=== PATIENT | female | born 1955 | race Two or more races ===

== ENCOUNTER 2018-07-26 15:56 | Inpatient (IN) | payer MEDICAID ==
[~2018-07-26] VITALS: Ht 162.6 cm; Wt 49.0 kg
--- NOTE | 2018-07-26 16:01 | NUR ---
ED Nurse Note: Pt came into the ER w/ complaints of n,v,d x 2 days. Pt was noted to be hyperglycemic as well. Upon arrival, Pt's BS was 400. Pt has a medical hx of HTN, DM, and hyperlipidemia. Pt takes metformin for her DM. Pt was able to take metformin this morning. Pt is complaining of 10/10 abdominal pain. Non radiating. A + O x4. Ambulatory. Skin warm to touch.
[2018-07-26 16:05] VITALS: BP 174/59
--- NOTE | 2018-07-26 16:33 | NUR ---
ED Nurse Note: Xray at the bedside.
[2018-07-26 16:57] LABS: BASOPHILS % (AUTO) 1.3 % (0.0-2.0); HEMOGLOBIN 13.2 G/DL (12.0-16.0); LYMPHOCYTES % (AUTO) 11.9 % (20.0-45.0); MEAN CORPUSCULAR VOLUME 86 FL (80-99); MONOCYTES % (AUTO) 7.7 % (1.0-10.0); NEUTROPHILS % (AUTO) 79.1 % (45.0-75.0); PLATELET COUNT 161 K/UL (150-450); RED BLOOD COUNT 4.41 M/UL (4.20-5.40); WHITE BLOOD COUNT 5.7 K/UL (4.8-10.8)
[2018-07-26 17:11] LABS: ANION GAP 12 mmol/L (5-15); BLOOD UREA NITROGEN 19 mg/dL (7-18); CALCIUM 8.9 MG/DL (8.5-10.1); CARBON DIOXIDE 24 MMOL/L (21-32); CHLORIDE 100 MMOL/L (98-107); CREATININE 0.9 MG/DL (0.55-1.30); POTASSIUM 4.1 MMOL/L (3.5-5.1); SODIUM 136 MMOL/L (136-145)
[2018-07-26 17:36] LABS: ALBUMIN 2.9 G/DL (3.4-5.0)
[2018-07-26 17:52] VITALS: BP 161/68
--- NOTE | 2018-07-26 18:14 | Diagnostic Imaging Report ---
Indication: Shortness of breath Technique: One view of the chest Comparison: none Findings: There is a 3.5 x 4 cm masslike opacity in the right lower lung. Lungs and pleural spaces are otherwise clear. The heart size is normal. Impression: Right basilar opacity, may reflect a mass or patchy infiltrate. Recommend follow-up radiographs, consider if the lesion fails to clear Findings discussed by phone with Dr. Doratnes at the time of interpretation
[2018-07-26 18:18] LABS: ALANINE AMINOTRANSFERASE 18 U/L (12-78); ALKALINE PHOSPHATASE 160 U/L (46-116); ASPARTATE AMINO TRANSFERASE 18 U/L (15-37); BILIRUBIN,TOTAL 0.6 MG/DL (0.2-1.0); CKMB 0.7 NG/ML (0.0-3.6); CREATINE KINASE 31 U/L (26-308)
--- NOTE | 2018-07-26 18:42 | NUR ---
ED Nurse Note: Pt went down to CT.
--- NOTE | 2018-07-26 18:54 | NUR ---
ED Nurse Note: Pt back from CT.
--- NOTE | 2018-07-26 19:06 | NUR ---
HAND-OFF: Report given to Roberto Gonzalez RN.
[2018-07-26 19:15] VITALS: BP 160/73
--- NOTE | 2018-07-26 20:00 | NUR ---
ED Nurse Note: URINE COLLECTED; SENT DOWN TO LAB
--- NOTE | 2018-07-26 20:20 | NUR ---
ED Nurse Note: ACCORDING TO PATIENT AND DAUGHTER, PT IS NOT ON HOME MEDS. CONFIRMED WITH TRIAGE NURSE, JETHRO GREGG. WITNESSED BY JETHRO VALLE AND HELGA HOUSTON
[2018-07-26 21:00] VITALS: BP 154/82
[2018-07-26 21:09] LABS: APPEARANCE,URINE CLEAR; BILIRUBIN, URINE NEGATIVE (NEGATIVE); COLOR,URINE PALE YELLOW; GLUCOSE, URINE (UA) 4+ (NEGATIVE); KETONES,URINE 3+ (NEGATIVE); LEUKOCYTE ESTERASE ,URINE NEGATIVE (NEGATIVE); NITRITE,URINE NEGATIVE (NEGATIVE); PH,URINE 6 (4.5-8.0); PROTEIN,URINE 4+ (NEGATIVE); UROBILINOGEN,URINE NORMAL MG/DL (0.0-1.0)
--- NOTE | 2018-07-26 21:24 | Emergency Room Report ---
History of Present Illness General Chief Complaint: Abnormal Labs Source: Patient Present Illness HPI Patient present with complaints of elevated glucose levels On further discussion she reports increased cough and congestion as well Subjective fevers Denies any recent travel and eyes any night sweats denies any rash Denies any chest pain she does feel some shortness of breath with exertion Denies any vomiting or diarrhea patient feels generally weak Allergies: Coded Allergies: No Known Allergies (Unverified , 07/26/18) Patient History Past Medical History: see triage record Pertinent Family History: none Now: No Reviewed Nursing Documentation: PMH: Agreed; PSxH: Agreed Nursing Documentation-PMH Past Medical History: No History, Except For Hx Hypertension: Yes Hx Diabetes: Yes Review of Systems All Other Systems: negative except mentioned in HPI Physical Exam Vital Signs Date Time Temp Pulse Resp B/P (MAP) Pulse Ox O2 Delivery O2 Flow Rate FiO2 07/26/18 15:52 108 18 156/71 100 Room Air 07/26/18 16:05 100.0 Sp02 EP Interpretation: reviewed, normal General Appearance: mild distress - Weak Head: normocephalic, atraumatic Eyes: bilateral eye PERRL, bilateral eye EOMI ENT: hearing grossly normal, no angioedema, dry mucus membranes Neck: supple, no meningismus, no bony tend Respiratory: lungs clear, no retraction, no accessory muscle use Cardiovascular #1: regular rate, rhythm Gastrointestinal: non tender, soft, no mass Genitourinary: no CVA tenderness Musculoskeletal: normal inspection Neurologic: alert, oriented x3, responsive Skin: normal color, no rash, warm/dry Lymphatic: no adenopathy Medical Decision Making Diagnostic Impression: Primary Impression: Pneumonia ER Course Given the patient's history exam and presentation multiple differentials considered including but not limited to cardiac, cardiopulmonary, vascular pathology patient's x-ray shows right-sided consolidation versus mass Glucose also elevated however patient does not appear to be in DKA further hydration is provided broad-spectrum antibiotic Patient requiring inpatient care Labs Test 07/26/18 16:25 07/26/18 20:00 White Blood Count 5.7 K/UL (4.8-10.8) Red Blood Count 4.41 M/UL (4.20-5.40) Hemoglobin 13.2 G/DL (12.0-16.0) Hematocrit 38.0 % (37.0-47.0) Mean Corpuscular Volume 86 FL (80-99) Mean Corpuscular Hemoglobin 29.9 PG (27.0-31.0) Mean Corpuscular Hemoglobin Concent 34.7 G/DL (32.0-36.0) Red Cell Distribution Width 11.0 % (11.6-14.8) Platelet Count 161 K/UL (150-450) Mean Platelet Volume 7.2 FL (6.5-10.1) Neutrophils (%) (Auto) 79.1 % (45.0-75.0) Lymphocytes (%) (Auto) 11.9 % (20.0-45.0) Monocytes (%) (Auto) 7.7 % (1.0-10.0) Eosinophils (%) (Auto) 0.0 % (0.0-3.0) Basophils (%) (Auto) 1.3 % (0.0-2.0) Sodium Level 136 MMOL/L (136-145) Potassium Level 4.1 MMOL/L (3.5-5.1) Chloride Level 100 MMOL/L (98-107) Carbon Dioxide Level 24 MMOL/L (21-32) Anion Gap 12 mmol/L (5-15) Blood Urea Nitrogen 19 mg/dL (7-18) Creatinine 0.9 MG/DL (0.55-1.30) Estimat Glomerular Filtration Rate > 60 mL/min (>60) Glucose Level 380 MG/DL (74-106) Lactic Acid Level 1.30 mmol/L (0.4-2.0) Calcium Level 8.9 MG/DL (8.5-10.1) Total Bilirubin 0.6 MG/DL (0.2-1.0) Aspartate Amino Transf (AST/SGOT) 18 U/L (15-37) Alanine Aminotransferase (ALT/SGPT) 18 U/L (12-78) Alkaline Phosphatase 160 U/L (46-116) Total Creatine Kinase 31 U/L (26-308) Creatine Kinase MB 0.7 NG/ML (0.0-3.6) Creatine Kinase MB Relative Index 2.2 Troponin I 0.000 ng/mL (0.000-0.056) Pro-B-Type Natriuretic Peptide 375 pg/mL (0-125) Total Protein 7.0 G/DL (6.4-8.2) Albumin 2.9 G/DL (3.4-5.0) Globulin 4.1 g/dL Lipase 91 U/L (73-393) Urine Color Pale yellow Urine Appearance Clear Urine pH 6 (4.5-8.0) Urine Specific [place] 1.010 (1.005-1.035) Urine Protein 4+ (NEGATIVE) Urine Glucose (UA) 4+ (NEGATIVE) Urine Ketones 3+ (NEGATIVE) Urine Blood 2+ (NEGATIVE) Urine Nitrite Negative (NEGATIVE) Urine Bilirubin Negative (NEGATIVE) Urine Urobilinogen Normal MG/DL (0.0-1.0) Urine Leukocyte Esterase Negative (NEGATIVE) Rhythm Strip Diag. Results EP Interpretation: yes Rate: 80 Rhythm: NSR, no PVC's, no ectopy Chest X-Ray Diagnostic Results Chest X-Ray Diagnostic Results : Chest X-Ray Ordered: Yes # of Views/Limited/Complete: 1 View Indication: Shortness of Breath EP Interpretation: Yes Interpretation: no effusion, no pneumothorax, other - Right-sided infiltrate /mass Impression: Other - Right-sided infiltrate/mass Electronically Signed by: Jaret Dorantes, DO CT/MRI/US Diagnostic Results CT/MRI/US Diagnostic Results : Impression CT chest Findings: There is an area of opacity involving the posterior right middle lobe extending from the hilum and abutting the major and minor fissures. Main opacity measures 7.5 cm transverse by 4.8 cm AP. Air bronchograms are seen extending through the opacity. There are numerous adjacent small nodular opacities and a focal pleural opacity in the anterior minor fissure. A few opacities are seen in the adjacent right lower lobe an inferior right upper lobe. Areas of interstitial prominence are seen throughout much of both lower lobes. No effusions. There is a small sliding-type hiatal hernia. The heart size is normal. There is minimal anterior wall pericardial thickening versus fluid. No mediastinal or hilar mass or adenopathy. The included portion of the thyroid is unremarkable. No axillary or chest wall mass or adenopathy. The included upper abdominal anatomy demonstrates left renal calcifications and bilateral perinephric fat stranding. The bones demonstrate a small bone island in the right humeral head. There are otherwise intact. Impression: Dense consolidation in the posterior right middle lobe with air bronchograms, with some extension into the adjacent right lower lobe and right upper lobe. Findings most likely represent pneumonia. Recommend follow-up to radiographic resolution to exclude underlying mass Bilateral lower lobe interstitial prominence, probably reflecting dependent atelectatic changes minimal anterior wall pericardial thickening versus fluid Nonobstructing left renal calculi Nonspecific perinephric fat stranding Last Vital Signs Date Time Temp Pulse Resp B/P (MAP) Pulse Ox O2 Delivery O2 Flow Rate FiO2 07/26/18 17:52 97.8 102 16 161/68 94 Room Air Status: improved Disposition: ADMITTED INPATIENT Condition: Serious Referrals: NOT CHOSEN IPA/,REFERRING (PCP) Jaret Dorantes DO Jul 26, 2018 21:24
--- NOTE | 2018-07-26 21:43 | NUR ---
TRANSFER TO FLOOR: Patient transferred to [facility] as ordered, report given to JETHRO Hayden
--- NOTE | 2018-07-26 22:05 | NUR ---
NURSE NOTES: Received telephone report from JETHRO Nash. Awaiting patient.
[2018-07-26 22:30] VITALS: BP 144/77
--- NOTE | 2018-07-26 22:30 | NUR ---
NURSE NOTES: Received patient via library technical assistant. Belongings checked. Patient Armenian speaking A&Ox4, on room air. IV intact, patent, and saline locked. Bed in lowest position with call light in reach. Will continue to monitor and contact MD for admission orders.
[2018-07-27] VITALS: BP 149/77
[2018-07-27] MEDS ORDERED: Acetaminophen 500mg (ES) tab ORAL PRN (01:00)
[2018-07-27 04:00] VITALS: BP 143/61
[2018-07-27] MEDS: NovoLOG Insulin Flexpen SUBQ SCH ×8 (07:03→21:04)
[2018-07-27 07:11] LABS: BASOPHILS % (AUTO) 0.8 % (0.0-2.0); HEMATOCRIT 34.1 % (37.0-47.0); LYMPHOCYTES % (AUTO) 25.8 % (20.0-45.0); MEAN CORPUSCULAR VOLUME 87 FL (80-99); MONOCYTES % (AUTO) 12.6 % (1.0-10.0); NEUTROPHILS % (AUTO) 60.9 % (45.0-75.0); PLATELET COUNT 152 K/UL (150-450); RED BLOOD COUNT 3.91 M/UL (4.20-5.40); RED CELL DISTRIBUTION WIDTH 11.2 % (11.6-14.8); WHITE BLOOD COUNT 4.8 K/UL (4.8-10.8)
[2018-07-27 07:35] LABS: ALANINE AMINOTRANSFERASE 17 U/L (12-78); ALBUMIN 2.5 G/DL (3.4-5.0); ALBUMIN/GLOBULIN RATIO 0.6 (1.0-2.7); ALKALINE PHOSPHATASE 136 U/L (46-116); ANION GAP 12 mmol/L (5-15); ASPARTATE AMINO TRANSFERASE 14 U/L (15-37); BILIRUBIN,TOTAL 0.5 MG/DL (0.2-1.0); BLOOD UREA NITROGEN 19 mg/dL (7-18); CALCIUM 8.8 MG/DL (8.5-10.1); CARBON DIOXIDE 24 MMOL/L (21-32); CHLORIDE 103 MMOL/L (98-107); CREATININE 0.9 MG/DL (0.55-1.30); SODIUM 139 MMOL/L (136-145)
--- NOTE | 2018-07-27 07:43 | NUR ---
HAND-OFF: Report given to RASHID Sandoval.
[2018-07-27] MEDS ORDERED: ZOFRAN4 M3 ORAL (07:57)
[2018-07-27] MEDS ORDERED: LANSOPRAZOLE30 M2 PO (07:57)
[2018-07-27] MEDS ORDERED: LYRICA75 M1 ORAL (07:57)
[2018-07-27] MEDS ORDERED: LUMIFY2.5 ML OP (07:57)
[2018-07-27] MEDS ORDERED: ATORVASTATIN CA40 MG ORAL (07:57)
[2018-07-27] MEDS ORDERED: ENALAPRIL MALEA20 MG ORAL (07:57)
[2018-07-27] MEDS ORDERED: JENTADUETO 2.51 EAC2 PO (07:57)
[2018-07-27] MEDS ORDERED: TERBINAFINE HC250 MG PO (07:57)
[2018-07-27] MEDS ORDERED: OMEPRAZOLE10 M1 ORAL (07:57)
[2018-07-27] MEDS ORDERED: MULTI VITAMIN1 EACH ORAL (07:57)
[2018-07-27 08:00] VITALS: BP 153/74
--- NOTE | 2018-07-27 08:48 | Diagnostic Imaging Report ---
Clinical Indication: Shortness of breath, abnormal recent chest radiograph Technique: Spiral acquisitions obtained through the chest. No IV contrast utilized, reason not stated. Multiplanar reconstructions generated. Total dose length product 485.52 mGycm. CTDIvol(s) 14.96 mGy. Dose reduction achieved using automated exposure control Comparison: Reference made to chest radiograph of 2 hours earlier Findings: There is an area of opacity involving the posterior right middle lobe extending from the hilum and abutting the major and minor fissures. Main opacity measures 7.5 cm transverse by 4.8 cm AP. Air bronchograms are seen extending through the opacity. There are numerous adjacent small nodular opacities and a focal pleural opacity in the anterior minor fissure. A few opacities are seen in the adjacent right lower lobe an inferior right upper lobe. Areas of interstitial prominence are seen throughout much of both lower lobes. No effusions. There is a small sliding-type hiatal hernia. The heart size is normal. There is minimal anterior wall pericardial thickening versus fluid. No mediastinal or hilar mass or adenopathy. The included portion of the thyroid is unremarkable. No axillary or chest wall mass or adenopathy. The included upper abdominal anatomy demonstrates left renal calcifications and bilateral perinephric fat stranding. The bones demonstrate a small bone island in the right humeral head. There are otherwise intact. Impression: Dense consolidation in the posterior right middle lobe with air bronchograms, with some extension into the adjacent right lower lobe and right upper lobe. Findings most likely represent pneumonia. Recommend follow-up to radiographic resolution to exclude underlying mass Bilateral lower lobe interstitial prominence, probably reflecting dependent atelectatic changes minimal anterior wall pericardial thickening versus fluid Nonobstructing left renal calculi Nonspecific perinephric fat stranding This agrees with the preliminary interpretation provided overnight by [facility] teleradiology service. The CT scanner at [facility] is accredited by the [employer] and the scans are performed using protocols designed to limit radiation exposure to as low as reasonably achievable to attain images of sufficient resolution adequate for diagnostic evaluation.
[2018-07-27] MEDS: Levemir Flexpen SUBQ SCH (08:52)
--- NOTE | 2018-07-27 09:28 | NUR ---
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 RIGHT LUNG MASS VS: BP 174/59, P 108, T 100.0, RR 27, SpO2 94 BUN 19, Glucose 380, ALK PHOS 160. URINE: PROTEIN 4+, GLUCOSE 4+, KETONES 3+, BLOOD 2+ IS:NS x1L IV LEVOFLOXACIN 150ml IVPB ZOFRAN 4mg IVP ADMITTED TO MED/SURG DC PLAN: RETURN HOME
--- NOTE | 2018-07-27 10:32 | NUR ---
RECEIVED PATIENT OUT OF BED SITTING IN A CHAIR.. ALERT. STATED FELT DIZZY CHECKED VITAL SIGNS STABLE.. NO ACUTE DISTRESS PLACED BACK IN THE BED ... GAVE ALL MEDICATION ORDERED.. DAUGHTER AT BEDSIDE.. PLACED CALL LIGHT IN REACH
[2018-07-27 12:00] VITALS: BP 155/74
--- NOTE | 2018-07-27 12:59 | NUR ---
PATIENT DAUGHTER AT BEDSIDE.. INFORMED PATIENT TO EAT ALL OF HER LUNCH,.. DUE TO INSULIN COVERAGES. CONTINUE TO HAVE PERIODS OF DIZZINESS CALL LIGHT IN REACH
[2018-07-27] MEDS ORDERED: Pneumococcal Vaccine 25mcg/0.5ml IM ONE (13:45)
[2018-07-27] MEDS ORDERED: Azithromycin 250mg tab ORAL SCH (14:30)
[2018-07-27] MEDS: cefTRIAXone 1 GM in D5W 55 ML IVPB SCH (15:11)
[2018-07-27 16:00] VITALS: BP 127/80
--- NOTE | 2018-07-27 16:15 | Consultation ---
DATE OF CONSULTATION: 07/27/2018 CONSULTING PHYSICIAN: Jim Zelaya M.D. REFERRING PHYSICIAN: Jaret Neff M.D. REASON FOR CONSULTATION: Diabetes management. HISTORY OF PRESENT ILLNESS: The patient is a 63-year-old female with history of hypertension and diabetes, presents to the hospital with abnormal labs, was found to have right lung pneumonia versus mass. Glucose is elevated. Endocrinology was consulted in order to assist in the management of diabetes PAST MEDICAL HISTORY: Diabetes and hypertension. PAST SURGICAL HISTORY: None. FAMILY HISTORY: Noncontributory. SOCIAL HISTORY: No smoking, alcohol, or drug use. REVIEW OF SYSTEMS: As per history of present illness. LABORATORY DATA: WBC 5, hemoglobin 13, hematocrit 38, platelets of 161. Sodium 136, potassium 4.1, chloride 100, bicarbonate 24, BUN 19, creatinine 0.9, glucose 380. Lactic acid 1.3. Lipase 91. Troponin 0. PHYSICAL EXAMINATION: VITAL SIGNS: Blood pressure 143/61, pulse 88, temperature 99.2, respiratory rate 18. HEENT: Pupils are equal and reactive to light. Sclerae anicteric. NECK: No JVD. HEART: Regular. LUNGS: Clear. ABDOMEN: Positive bowel sounds. EXTREMITIES: No clubbing, cyanosis, or edema. DIAGNOSES: 1. Right lung mass versus pneumonia. 2. Diabetes out of control. 3. Hypertension. PLAN: 1. Diabetic diet 2. Start Levemir 18 units daily. 3. Start NovoLog 6 units before each meal. 4. Sliding scale insulin before meals and at bedtime. 5. Check hemoglobin A1c. 6. Further adjustment according to blood glucose values. Thank you, Dr. Neff, for the courtesy of this consultation. Jim Zelaya M.D. DR: JETHRO/linda JOB#: [id number] CC: MICHAEL
--- NOTE | 2018-07-27 17:15 | Consultation ---
History of Present Illness General Chief Complaint: Abnormal Labs Present Illness Allergies: Coded Allergies: No Known Allergies (Unverified , 07/26/18) Medication History Scheduled Atorvastatin Calcium* (Atorvastatin Calcium*), 40 MG ORAL BEDTIME, (Reported) Brimonidine Tartrate (Lumify), 2.5 ML OP QID, (Reported) Enalapril Maleate* (Enalapril Maleate*), 20 MG ORAL DAILY, (Reported) Linagliptin/Metformin Hcl (Jentadueto 2.5 Mg-1000 Mg Tab), 1 EACH PO BID, ( Reported) Multivitamin (Multi Vitamin Daily), 1 TAB ORAL DAILY, (Reported) Omeprazole (Omeprazole), 10 MG ORAL DAILY, (Reported) Pregabalin* (Lyrica*), 75 MG ORAL DAILY, (Reported) Terbinafine Hcl* (Lamisil*), 250 MG PO DAILY, (Reported) Scheduled PRN Ondansetron* (Zofran*), 4 MG ORAL Q8HR PRN for Nausea & Vomiting, (Reported) Miscellaneous Medications Lansoprazole (Lansoprazole), 30 MG PO, (Reported) Patient History Healthcare decision maker N Resuscitation status Full Code Advanced Directive on File Physical Exam Last 24 Hour Vital Signs Date Time Temp Pulse Resp B/P (MAP) Pulse Ox O2 Delivery O2 Flow Rate FiO2 07/27/18 09:00 Room Air 07/27/18 04:00 99.3 88 18 143/61 (88) 93 07/27/18 00:00 99.0 90 18 149/77 (101) 93 07/26/18 22:58 Room Air 07/26/18 22:30 98.4 80 18 144/77 (99) 98 07/26/18 21:43 97.8 86 12 154/82 98 Room Air 07/26/18 21:00 97.8 86 12 154/82 98 Room Air 07/26/18 19:15 97.8 80 16 160/73 100 Room Air 07/26/18 17:52 97.8 102 16 161/68 94 Room Air Intake and Output 07/26/18 07/27/18 19:00 07:00 Intake Total 1000 ml 150 ml Balance 1000 ml 150 ml Intake IV Total 1000 ml 150 ml # Voids 2 Laboratory Tests Test 07/26/18 20:00 07/27/18 05:55 Urine Color Pale yellow Urine Appearance Clear Urine pH 6 (4.5-8.0) Urine Specific [place] 1.010 (1.005-1.035) Urine Protein 4+ (NEGATIVE) H Urine Glucose (UA) 4+ (NEGATIVE) H Urine Ketones 3+ (NEGATIVE) H Urine Blood 2+ (NEGATIVE) H Urine Nitrite Negative (NEGATIVE) Urine Bilirubin Negative (NEGATIVE) Urine Urobilinogen Normal MG/DL (0.0-1.0) Urine Leukocyte Esterase Negative (NEGATIVE) Urine RBC 2-4 /HPF (0 - 2) H Urine WBC 0 /HPF (0 - 2) Urine Squamous Epithelial Cells Occasional /LPF Urine Bacteria Occasional /HPF (NONE) White Blood Count 4.8 K/UL (4.8-10.8) Red Blood Count 3.91 M/UL (4.20-5.40) L Hemoglobin 12.0 G/DL (12.0-16.0) Hematocrit 34.1 % (37.0-47.0) L Mean Corpuscular Volume 87 FL (80-99) Mean Corpuscular Hemoglobin 30.7 PG (27.0-31.0) Mean Corpuscular Hemoglobin Concent 35.2 G/DL (32.0-36.0) Red Cell Distribution Width 11.2 % (11.6-14.8) L Platelet Count 152 K/UL (150-450) Mean Platelet Volume 7.1 FL (6.5-10.1) Neutrophils (%) (Auto) 60.9 % (45.0-75.0) Lymphocytes (%) (Auto) 25.8 % (20.0-45.0) Monocytes (%) (Auto) 12.6 % (1.0-10.0) H Eosinophils (%) (Auto) 0.0 % (0.0-3.0) Basophils (%) (Auto) 0.8 % (0.0-2.0) Sodium Level 139 MMOL/L (136-145) Potassium Level 4.0 MMOL/L (3.5-5.1) Chloride Level 103 MMOL/L (98-107) Carbon Dioxide Level 24 MMOL/L (21-32) Anion Gap 12 mmol/L (5-15) Blood Urea Nitrogen 19 mg/dL (7-18) H Creatinine 0.9 MG/DL (0.55-1.30) Estimat Glomerular Filtration Rate > 60 mL/min (>60) Glucose Level 259 MG/DL (74-106) #H Hemoglobin A1c 11.8 % (4.3-6.0) H Calcium Level 8.8 MG/DL (8.5-10.1) Total Bilirubin 0.5 MG/DL (0.2-1.0) Aspartate Amino Transf (AST/SGOT) 14 U/L (15-37) L Alanine Aminotransferase (ALT/SGPT) 17 U/L (12-78) Alkaline Phosphatase 136 U/L (46-116) H Total Protein 6.5 G/DL (6.4-8.2) Albumin 2.5 G/DL (3.4-5.0) L Globulin 4.0 g/dL Albumin/Globulin Ratio 0.6 (1.0-2.7) L Height (Feet): 5 Height (Inches): 4.00 Weight (Pounds): 111 Medications Current Medications Medications (Trade) Dose Ordered Sig/Aidan Route PRN Reason Start Time Stop Time Status Last Admin Dose Admin Acetaminophen (Tylenol) 500 mg Q4H PRN ORAL Mild Pain/Temp > 100.5 07/27/18 01:00 08/26/18 00:59 Azithromycin (Zithromax) 250 mg DAILY ORAL 07/28/18 09:00 08/04/18 08:59 Ceftriaxone Sodium 1 gm/ Dextrose 55 ml @ 110 mls/hr Q24H IVPB 07/27/18 15:00 08/03/18 14:59 07/27/18 15:11 Dextrose (Dextrose 50%) 25 ml Q30M PRN IV Hypoglycemia 07/27/18 07:00 08/26/18 06:59 Dextrose (Dextrose 50%) 50 ml Q30M PRN IV Hypoglycemia 07/27/18 07:00 08/26/18 06:59 Insulin Aspart (NovoLOG) BEFORE MEALS AND HS SUBQ 07/27/18 06:30 08/26/18 06:29 07/27/18 11:13 Insulin Aspart (NovoLOG) 6 units NOVOTIAC SUBQ 07/27/18 11:50 08/26/18 11:49 07/27/18 11:12 Insulin Detemir (Levemir) 18 units DAILY SUBQ 07/27/18 09:00 08/26/18 08:59 07/27/18 08:52 Pneumococcal Polyvalent Vaccine (Pneumovax) 0.5 ml ONCE ONCE IM 07/27/18 13:45 07/27/18 13:46 UNV Assessment/Plan Assessment/Plan Hematology Consultaiton DATE OF CONSULTATION: 07/27/2018 CONSULTING MD: Jaret Neff REASON FOR CONSULTATION: Right lung mass eval HISTORY OF PRESENT ILLNESS: The patient is a 63-year-old female with history of hypertension and diabetes, presents to the hospital with abnormal labs, was found to have right lung pneumonia versus mass. Glucose is elevated. Endocrinology was consulted in order to assist in the management of diabetes, she has been started on insulin, novology coverage and accuchecks qac and qhs and hematology consulted for eval of lung mass PAST MEDICAL HISTORY: Diabetes and hypertension. PAST SURGICAL HISTORY: None. FAMILY HISTORY: Noncontributory. SOCIAL HISTORY: No smoking, alcohol, or drug use. ROS: Constitutional: No fever, no chills, no night sweats, no fatigue Skin: No rashes, lumps, itchiness, dryness HEENT: No EPSTEIN, ear ache, visual changes, double vision, nosebleeds, sore throat, lumps, swollen glands Breasts: No lumps, pain, discharge Pulmonary: No cough, sputum, shortness of breath, coughing up blood, hemoptysis Cardiovascular: No chest pain, tightness, palpitations, syncope, claudication, orthopnea, PND GI: No nausea, vomiting, diarrhea, melena, hematochezia, change in appetite, abdominal pain : No dysuria, frequency, urgency, urinary incontinence, foamy urine Musculoskeletal: No joint swelling or muscle pain, trauma, back pain Neurologic: No dizziness, fainting, seizures, changes in smell or taste Psychiatric: No nervousness, stress, or depression, anxiety, hallucinations Endocrine: No weight change, heat or cold intolerance, tremor, insomnia PE: Vitals: reviewed General Appearance: NAD HEENT: normocephalic, atraumatic Neck: non-tender, normal alignment Respiratory/Chest: nromal breath sounds bilaterally Cardiovascular/Chest: normal peripheral pulses, normal rate Abdomen: normal bowel sounds, soft, nontender Extremities: normal range of motion LABORATORY DATA: WBC 5, hemoglobin 13, hematocrit 38, platelets of 161. Sodium 136, potassium 4.1, chloride 100, bicarbonate 24, BUN 19, creatinine 0.9, glucose 380. Lactic acid 1.3. Lipase 91. Troponin 0. Assessment and Recs: 1. Right lung mass versus pneumonia. Dense consolidation in the posterior right middle lobe with air bronchograms, with some extension into the adjacent right lower lobe and right upper lobe. Findings most likely represent pneumonia --> imaging has been reviewed and obtain cxr in future to monitor resolution --> no need for biopsy at this exact time, given potential improvement on abx --> again repeat cxr in several days --> pulm and id eval prn --> abx have been started 2. Diabetes out of control. --> per endo insulin and accuchecks 3. Hypertension. The timing of this note does not necessarily reflect the time of the patient was seen. Greatly appreciate consultation! Rodrigo Rodríguez MD Jul 27, 2018 17:15
--- NOTE | 2018-07-27 19:35 | NUR ---
NURSE NOTES: patient received. patient in no acute distress at this time. patient complains of no pain at this time. patient awake and oriented x4. Vietnamese speaking. family at bedside. IV intact and asymptomatic. bed in lowest position and locked. call light within reach. will continue to monitor.
[2018-07-27 20:00] VITALS: BP 150/77
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
[2018-07-28] VITALS: BP 158/76
[2018-07-28 04:00] VITALS: BP 162/70
[2018-07-28] MEDS: NovoLOG Insulin Flexpen SUBQ SCH ×7 (06:05→21:35)
--- NOTE | 2018-07-28 07:21 | NUR ---
HAND-OFF: Report given to bang cisneros .
[2018-07-28 08:00] VITALS: BP 148/71
[2018-07-28] MEDS: Azithromycin 250mg tab ORAL SCH (08:23)
[2018-07-28] MEDS: Levemir Flexpen SUBQ SCH (08:38)
--- NOTE | 2018-07-28 10:11 | NUR ---
CASE MANGER REVIEW SI:PNA . RIGHT LUNG MASS VS: BP 162/70, P 98, T 99.7, RR 20, SpO2 91 IS:ZITHROMAX 250mg NOVOLOG SUBQ LEVEMIR SUBQ CEFTRIAXONE 55ml IVPB MED/SURG STATUS
--- NOTE | 2018-07-28 10:46 | NUR ---
RECEIVED PATIENT IN BED ALERT AND AWAKE.. ITALIAN SPEAKING .. C/O DIZZINESS .. ENCOURAGE TO DEEP BREATH WHILE AWAKE... TOLERATED ALL MEDICATIONS , NO NAUSEA/EMESIS.. CALL LIGHT IN REACH
--- NOTE | 2018-07-28 11:55 | NUR ---
RD ASSESSMENT & RECOMMENDATIONS SEE CARE ACTIVITY FOR COMPLETE ASSESSMENT DAILY ESTIMATED NEEDS: Needs based on DM 49kg 25-30 kcals/kg 3705-0366 total kcals 1-1.5 g protein/kg 49-74 g total protein 25-30 mL/kg 9145-0408 total fluid mLs NUTRITION DIAGNOSIS: Altered nutrition related lab values r/t diabetes as evidenced by A1C 11.8, elev BG (259 380), Uglu 4+ on adm. CURRENT DIET: CCHO MED ms chopped PO DIET RECOMMENDATIONS: CCHO LOW (texture per BALE STACKER) ADDITIONAL RECOMMENDATIONS: 1) BALE STACKER eval. pt c/o painful swallowing 2) Standing wt + ht as able 3) Change diet to CCHO LOW for improved glycemic control 4) B-complex daily
[2018-07-28 12:00] VITALS: BP 149/76
--- NOTE | 2018-07-28 12:30 | History and Physical Report ---
DATE OF ADMISSION: 07/26/2018 HISTORY OF PRESENT ILLNESS: The patient is admitted for right-sided mass and also has elevated sugar, admitted for pneumonia versus right lung mass. The patient has also been coughing and has some gastritis as well. Speaks Wolof only. Denies nausea, vomiting, or diarrhea. Denies chills. Denies fever. PAST MEDICAL HISTORY: Hyperlipidemia, hypertension, GERD, neuropathy, and gastritis. PAST SURGERIES: None. MEDICATIONS: Enalapril, metformin, multivitamin, omeprazole, and Lyrica. ALLERGIES: No known allergies. FAMILY HISTORY: Noncontributory. REVIEW OF SYSTEMS: HEENT: Denies headaches. RESPIRATORY: Denies shortness of breath. Does have cough. Nonproductive for couple of days. CARDIOVASCULAR: Denies chest pain. GASTROINTESTINAL: Reports gastritis. Denies nausea, vomiting, or diarrhea. EXTREMITY: Denies pain in lower extremities. STILL OPERATOR WHISKEY: Denies change in vision or speech pattern. PHYSICAL EXAMINATION: VITAL SIGNS: Temperature 99, pulse is 90, and blood pressure 149/77. HEENT: PERRLA. NECK: Supple. No lymphadenopathy. CHEST: Clear to auscultation. CARDIOVASCULAR: Regular rate and rhythm. No murmurs or extra sounds. GASTROINTESTINAL: Soft, nontender, and nondistended. No organomegaly. EXTREMITIES: No edema. Moves all four extremities. NEUROLOGIC: Sensory intact to light touch. Reflexes are equal on both sides. Moves all four extremities. DIAGNOSTIC DATA: Chest CT shows dense consolidation in the posterior right middle lobe with air bronchograms, such as pneumonia, bilateral left lower lobe interstitial prominence, as well as noted nonobstructing left renal calculi, no incidental finding. LABORATORY DATA: Laboratory dwyer WBC of 5.7, hemoglobin 13.2, and platelets 161,000. Sodium 139, potassium 4, BUN of 19, creatinine 0.9, and glucose of 259. Hemoglobin A1c of 11.8. ASSESSMENT: 1. Uncontrolled diabetes. 2. Pneumonia. 3. Respiratory insufficiency with a lung mass most likely indicative of pneumonia on the CT. 4. Elevated blood sugar. PLAN: I have asked Dr. Rodrigo Rodríguez, Dr. Miguel Angel Santiago, and Dr. Jim Zelaya to see the patient for the above-mentioned diagnoses and treatment. Ali Catherine Neff DR: RADHA JOB#: [id number] CC:
--- NOTE | 2018-07-28 13:47 | NUR ---
PATIENT OUT OF BED STABLE. SITTING IN CHAIR. DAUGHTER AT HER BEDSIDE.. NO ACUTE DISTRESS CALL LIGHT INR EACH
[2018-07-28] MEDS: cefTRIAXone 1 GM in D5W 55 ML IVPB SCH (15:25)
[2018-07-28 16:00] VITALS: BP 162/78
--- NOTE | 2018-07-28 16:20 | Infectious Diseases Prog Note ---
Assessment/Plan Assessment/Plan IMPRESSION: 1. Pneumonia, likely community-acquired. 2. Diabetes mellitus, uncontrolled with hyperglycemia. 3. Has decrease in right eye vision. 4. Positive blood culture, bacteremia RECOMMENDATION: continue with Rocephin and Zithromax Add Vancomycin Subjective ROS Limited/Unobtainable: Yes Respiratory: Reports: productive cough Gastrointestinal/Abdominal: Reports: no symptoms Genitourinary: Reports: no symptoms Musculoskeletal: Reports: pain Allergies: Coded Allergies: No Known Allergies (Unverified , 07/26/18) Objective Vital Signs Last 24 Hour Vital Signs Date Time Temp Pulse Resp B/P (MAP) Pulse Ox O2 Delivery O2 Flow Rate FiO2 07/28/18 12:00 98.2 74 18 149/76 (100) 94 07/28/18 09:00 Room Air 07/28/18 08:00 99.0 78 20 148/71 (96) 98 07/28/18 04:00 99.4 80 18 162/70 (100) 93 07/28/18 00:00 99.7 81 18 158/76 (103) 91 07/27/18 21:00 Room Air 07/27/18 20:00 98.4 98 18 150/77 (101) 91 Height (Feet): 5 Height (Inches): 4.00 Weight (Pounds): 108 General Appearance: no acute distress HEENT: mucous membranes moist Respiratory/Chest: lungs clear Cardiovascular: normal rate Abdomen: soft, non tender Extremities: no edema Neurologic/Psychiatric: alert, oriented x 3, responsive Microbiology Date/Time Source Procedure Growth Status 07/26/18 16:25 Blood Blood Culture - Preliminary Resulted 07/26/18 16:10 Blood Blood Culture - Preliminary NO GROWTH AFTER 24 HOURS Resulted Current Medications Medications (Trade) Dose Ordered Sig/Aidan Route PRN Reason Start Time Stop Time Status Last Admin Dose Admin Acetaminophen (Tylenol) 500 mg Q4H PRN ORAL Mild Pain/Temp > 100.5 07/27/18 01:00 08/26/18 00:59 Azithromycin (Zithromax) 250 mg DAILY ORAL 07/28/18 09:00 08/04/18 08:59 07/28/18 08:23 Ceftriaxone Sodium 1 gm/ Dextrose 55 ml @ 110 mls/hr Q24H IVPB 07/27/18 15:00 08/03/18 14:59 07/28/18 15:25 Dextrose (Dextrose 50%) 25 ml Q30M PRN IV Hypoglycemia 07/27/18 07:00 08/26/18 06:59 Dextrose (Dextrose 50%) 50 ml Q30M PRN IV Hypoglycemia 07/27/18 07:00 08/26/18 06:59 Insulin Aspart (NovoLOG) BEFORE MEALS AND HS SUBQ 07/27/18 06:30 08/26/18 06:29 07/28/18 11:45 Insulin Aspart (NovoLOG) 6 units NOVOTIAC SUBQ 07/27/18 11:50 08/26/18 11:49 07/28/18 11:46 Insulin Detemir (Levemir) 18 units DAILY SUBQ 07/27/18 09:00 08/26/18 08:59 07/28/18 08:38 Pneumococcal Polyvalent Vaccine (Pneumovax) 0.5 ml ONCE ONCE IM 07/27/18 13:45 07/27/18 13:46 Miguel Angel Aguilar MD Jul 28, 2018 16:20
--- NOTE | 2018-07-28 16:26 | NUR ---
INFORMED DR. BROWN OF BLOOD CX AWARE NOTED Addendum: 07/28/18 at 1627 by CAT CARRILLO LVN BLOOD CX POSITIVE
[2018-07-28] MEDS ORDERED: Vancomycin 1.25gm Premix IVPB ONE (17:00)
--- NOTE | 2018-07-28 17:47 | General Progress Note ---
Assessment/Plan Assessment/Plan Assessment and Recs: #. Right lung mass versus pneumonia. Dense consolidation in the posterior right middle lobe with air bronchograms, with some extension into the adjacent right lower lobe and right upper lobe. Findings most likely represent pneumonia --> imaging has been reviewed and obtain cxr in future to monitor resolution --> no need for biopsy at this exact time, given potential improvement on abx --> again repeat cxr in several days --> pulm and id eval prn --> abx have been started #. Abnormal labs with elevated tumor markers --> can obtain outpatient imaging as needed, though can be done op #. Diabetes out of control. --> per endo insulin and accuchecks #. Hypertension. The timing of this note does not necessarily reflect the time of the patient was seen. Greatly appreciate consultation! Subjective Constitutional: Denies: no symptoms, chills, diaphoresis, fever, malaise, weakness, other Cardiovascular: Denies: no symptoms, chest pain, edema, irregular heart rate, lightheadedness, palpitations, syncope, other Respiratory: Denies: no symptoms, cough, orthopnea, shortness of breath, SOB with excertion, SOB at rest, sputum, stridor, wheezing, other Gastrointestinal/Abdominal: Denies: no symptoms, abdomen distended, abdominal pain, black stools, tarry stools, blood in stool, constipated, diarrhea, difficulty swallowing, nausea, poor appetite, poor fluid intake, rectal bleeding , vomiting, other Hematologic/Lymphatic: Denies: no symptoms, anemia, easy bleeding, easy bruising, other Allergies: Coded Allergies: No Known Allergies (Unverified , 07/26/18) Subjective 07/28: no new events, has elevated tumor markers, will review further Objective Last 24 Hour Vital Signs Date Time Temp Pulse Resp B/P (MAP) Pulse Ox O2 Delivery O2 Flow Rate FiO2 07/28/18 16:00 98.5 76 19 162/78 (106) 100 07/28/18 12:00 98.2 74 18 149/76 (100) 94 07/28/18 09:00 Room Air 07/28/18 08:00 99.0 78 20 148/71 (96) 98 07/28/18 04:00 99.4 80 18 162/70 (100) 93 07/28/18 00:00 99.7 81 18 158/76 (103) 91 07/27/18 21:00 Room Air 07/27/18 20:00 98.4 98 18 150/77 (101) 91 Intake and Output 07/27/18 07/28/18 19:00 07:00 Intake Total 900 ml Balance 900 ml Other 900 ml # Voids 2 Height (Feet): 5 Height (Inches): 4.00 Weight (Pounds): 108 Objective PE: Vitals: reviewed General Appearance: NAD HEENT: normocephalic, atraumatic Neck: non-tender, normal alignment Respiratory/Chest: nromal breath sounds bilaterally Cardiovascular/Chest: normal peripheral pulses, normal rate Abdomen: normal bowel sounds, soft, nontender Extremities: normal range of motion Rodrigo Rodríguez MD Jul 28, 2018 17:47
[2018-07-28] MEDS ORDERED: Vancomycin 1.25gm Premix IVPB SCH (18:00)
--- NOTE | 2018-07-28 18:08 | Cardiology Report ---
APPROVED REPORT EKG Measurement Heart [id number] Normal sinus rhythm Normal ECG
[2018-07-28 20:00] VITALS: BP 158/67
--- NOTE | 2018-07-28 22:13 | General Progress Note ---
Assessment/Plan Problem List: (1) Pneumonia ICD Codes: J18.9 - Pneumonia, unspecified organism SNOMED: 400506751 (2) Abnormal laboratory test result ICD Codes: R89.9 - Unspecified abnormal finding in specimens from other organs , systems and tissues SNOMED: 182269300 Status: progressing Assessment/Plan pna chronic pain afebrile reviewed the chart Subjective ROS Limited/Unobtainable: Yes Allergies: Coded Allergies: No Known Allergies (Unverified , 07/26/18) Objective Last 24 Hour Vital Signs Date Time Temp Pulse Resp B/P (MAP) Pulse Ox O2 Delivery O2 Flow Rate FiO2 07/28/18 20:00 97.8 76 18 158/67 (97) 97 07/28/18 16:00 98.5 76 19 162/78 (106) 100 07/28/18 12:00 98.2 74 18 149/76 (100) 94 07/28/18 09:00 Room Air 07/28/18 08:00 99.0 78 20 148/71 (96) 98 07/28/18 04:00 99.4 80 18 162/70 (100) 93 07/28/18 00:00 99.7 81 18 158/76 (103) 91 Intake and Output 07/27/18 07/28/18 19:00 07:00 Intake Total 900 ml Balance 900 ml Other 900 ml # Voids 2 Height (Feet): 5 Height (Inches): 4.00 Weight (Pounds): 108 Neck: supple Cardiovascular: normal rate Respiratory/Chest: lungs clear Jaret Neff MD Jul 28, 2018 22:13
--- NOTE | 2018-07-28 22:14 | General Progress Note ---
Assessment/Plan Problem List: (1) Pneumonia ICD Codes: J18.9 - Pneumonia, unspecified organism SNOMED: 178680346 (2) Abnormal laboratory test result ICD Codes: R89.9 - Unspecified abnormal finding in specimens from other organs , systems and tissues SNOMED: 684451974 Status: progressing Assessment/Plan pna is improving no whezing vitals stable chronic pain Subjective ROS Limited/Unobtainable: Yes Allergies: Coded Allergies: No Known Allergies (Unverified , 07/26/18) Objective Last 24 Hour Vital Signs Date Time Temp Pulse Resp B/P (MAP) Pulse Ox O2 Delivery O2 Flow Rate FiO2 07/28/18 20:00 97.8 76 18 158/67 (97) 97 07/28/18 16:00 98.5 76 19 162/78 (106) 100 07/28/18 12:00 98.2 74 18 149/76 (100) 94 07/28/18 09:00 Room Air 07/28/18 08:00 99.0 78 20 148/71 (96) 98 07/28/18 04:00 99.4 80 18 162/70 (100) 93 07/28/18 00:00 99.7 81 18 158/76 (103) 91 Intake and Output 07/27/18 07/28/18 19:00 07:00 Intake Total 900 ml Balance 900 ml Other 900 ml # Voids 2 Height (Feet): 5 Height (Inches): 4.00 Weight (Pounds): 108 Neck: supple Cardiovascular: normal rate Respiratory/Chest: lungs clear Abdomen: soft Jaret Neff MD Jul 28, 2018 22:14
[2018-07-29] VITALS (7 sets, daily range): BP systolic 97–170; BP diastolic 51–84
--- NOTE | 2018-07-29 06:19 | NUR ---
NURSE NOTES: RESTED WELL, NO SIGNIFICANT CHANGE OF CONDITION NOTED THROUGHOUT THE NIGHT. SAFETY MAINTAINED. NAD.
--- NOTE | 2018-07-29 06:51 | General Progress Note ---
Assessment/Plan Problem List: (1) Diabetes mellitus out of control ICD Codes: E11.65 - Type 2 diabetes mellitus with hyperglycemia SNOMED: 39802296, 502695692 (2) Pneumonia ICD Codes: J18.9 - Pneumonia, unspecified organism SNOMED: 466579999 (3) Abnormal laboratory test result ICD Codes: R89.9 - Unspecified abnormal finding in specimens from other organs , systems and tissues SNOMED: 159531839 Assessment/Plan increase Levemir to 24 units daily increase Novolog to 8 units ac tid continue NISS ac / hs Subjective Allergies: Coded Allergies: No Known Allergies (Unverified , 07/26/18) All Systems: reviewed and negative except above Subjective events noted Item Value Date Time Bedside Blood Glucose 255 mg/dl H 07/29/18 0638 Bedside Blood Glucose 335 mg/dl H 07/28/18 2139 Bedside Blood Glucose 266 mg/dl H 07/28/18 1710 Bedside Blood Glucose 255 mg/dl H 07/28/18 1146 Bedside Blood Glucose 264 mg/dl H 07/28/18 0838 Bedside Blood Glucose 306 mg/dl H 07/28/18 0630 Objective Last 24 Hour Vital Signs Date Time Temp Pulse Resp B/P (MAP) Pulse Ox O2 Delivery O2 Flow Rate FiO2 07/29/18 04:00 97.4 61 18 170/74 (106) 98 07/29/18 00:00 97.4 74 19 147/74 (98) 98 07/28/18 21:00 Room Air 07/28/18 20:00 97.8 76 18 158/67 (97) 97 07/28/18 16:00 98.5 76 19 162/78 (106) 100 07/28/18 12:00 98.2 74 18 149/76 (100) 94 07/28/18 09:00 Room Air 07/28/18 08:00 99.0 78 20 148/71 (96) 98 Intake and Output 07/28/18 07/29/18 18:59 06:59 Intake Total 1200 ml Balance 1200 ml Intake Oral 1200 ml # Voids 8 2 # Bowel Movements 1 Height (Feet): 5 Height (Inches): 4.00 Weight (Pounds): 108 General Appearance: no apparent distress Neck: normal alignment Cardiovascular: normal rate Respiratory/Chest: decreased breath sounds Abdomen: normal bowel sounds Pelvis: normal external exam Objective Current Medications Medications (Trade) Dose Ordered Sig/Aidan Route PRN Reason Start Time Stop Time Status Last Admin Dose Admin Acetaminophen (Tylenol) 500 mg Q4H PRN ORAL Mild Pain/Temp > 100.5 07/27/18 01:00 08/26/18 00:59 Azithromycin (Zithromax) 250 mg DAILY ORAL 07/28/18 09:00 08/04/18 08:59 07/28/18 08:23 Ceftriaxone Sodium 1 gm/ Dextrose 55 ml @ 110 mls/hr Q24H IVPB 07/27/18 15:00 08/03/18 14:59 07/28/18 15:25 Dextrose (Dextrose 50%) 25 ml Q30M PRN IV Hypoglycemia 07/27/18 07:00 08/26/18 06:59 Dextrose (Dextrose 50%) 50 ml Q30M PRN IV Hypoglycemia 07/27/18 07:00 08/26/18 06:59 Insulin Aspart (NovoLOG) BEFORE MEALS AND HS SUBQ 07/27/18 06:30 08/26/18 06:29 07/28/18 21:35 Insulin Aspart (NovoLOG) 6 units NOVOTIAC SUBQ 07/27/18 11:50 08/26/18 11:49 07/28/18 17:09 Insulin Detemir (Levemir) 18 units DAILY SUBQ 07/27/18 09:00 08/26/18 08:59 07/28/18 08:38 Pneumococcal Polyvalent Vaccine (Pneumovax) 0.5 ml ONCE ONCE IM 07/27/18 13:45 07/27/18 13:46 UNV Vancomycin HCl (Vanco rx to dose) 1 ea DAILY PRN MISC Per rx protocol 07/28/18 16:30 08/27/18 16:29 Vancomycin HCl 750 mg/Sodium Chloride 275 ml @ 183.333 mls/hr Q24H IVPB 07/29/18 17:00 08/03/18 16:59 Jim Zelaya MD Jul 29, 2018 06:51
[2018-07-29] MEDS: NovoLOG Insulin Flexpen SUBQ SCH ×6 (06:58→21:24)
--- NOTE | 2018-07-29 07:30 | NUR ---
NURSE NOTES: patient received A/A/Ox4, ambulatory.no acute distress at this time. Denies of pain/discomfort at this time. [place] speaking. family at bedside. IV intact and asymptomatic. bed in lowest position and locked. call light within reach. will continue to monitor.
--- NOTE | 2018-07-29 07:30 | NUR ---
HAND-OFF: Report given to RASHID WILLIAM.
[2018-07-29] MEDS: Azithromycin 250mg tab ORAL SCH (08:17)
[2018-07-29] MEDS ORDERED: Levemir Flexpen SUBQ SCH ×2 (09:00→21:00)
--- NOTE | 2018-07-29 12:26 | Infectious Diseases Prog Note ---
Assessment/Plan Assessment/Plan IMPRESSION: 1. Pneumonia, likely community-acquired. 2. Diabetes mellitus, uncontrolled with hyperglycemia. 3. Has decrease in right eye vision. 4. Positive blood culture, likely contamination RECOMMENDATION: continue with Rocephin and Zithromax in Hospital At time of discharge Po Levaquin Discontinue Vancomycin Subjective ROS Limited/Unobtainable: No Constitutional: Reports: no symptoms Respiratory: Reports: productive cough Cardiovascular: Reports: no symptoms Gastrointestinal/Abdominal: Reports: no symptoms Genitourinary: Reports: no symptoms Allergies: Coded Allergies: No Known Allergies (Unverified , 07/26/18) Objective Vital Signs Last 24 Hour Vital Signs Date Time Temp Pulse Resp B/P (MAP) Pulse Ox O2 Delivery O2 Flow Rate FiO2 07/29/18 11:50 97.9 68 18 158/76 (103) 96 07/29/18 08:00 81 108/51 (70) 07/29/18 08:00 96.1 87 20 97/59 (72) 98 07/29/18 04:30 151/84 (106) 07/29/18 04:00 97.4 61 18 170/74 (106) 98 07/29/18 00:00 97.4 74 19 147/74 (98) 98 07/28/18 21:00 Room Air 07/28/18 20:00 97.8 76 18 158/67 (97) 97 07/28/18 16:00 98.5 76 19 162/78 (106) 100 Height (Feet): 5 Height (Inches): 4.00 Weight (Pounds): 108 General Appearance: no acute distress HEENT: mucous membranes moist Respiratory/Chest: lungs clear Cardiovascular: normal rate Abdomen: soft, non tender Extremities: no edema Neurologic/Psychiatric: alert, responsive Microbiology Date/Time Source Procedure Growth Status 07/26/18 16:25 Blood Blood Culture - Preliminary Staphylococcus Sp Coag Neg Resulted 07/26/18 16:10 Blood Blood Culture - Preliminary NO GROWTH AFTER 48 HOURS Resulted Current Medications Medications (Trade) Dose Ordered Sig/Aidan Route PRN Reason Start Time Stop Time Status Last Admin Dose Admin Acetaminophen (Tylenol) 500 mg Q4H PRN ORAL Mild Pain/Temp > 100.5 07/27/18 01:00 08/26/18 00:59 Azithromycin (Zithromax) 250 mg DAILY ORAL 07/28/18 09:00 08/04/18 08:59 07/29/18 08:17 Ceftriaxone Sodium 1 gm/ Dextrose 55 ml @ 110 mls/hr Q24H IVPB 07/27/18 15:00 08/03/18 14:59 07/28/18 15:25 Dextrose (Dextrose 50%) 25 ml Q30M PRN IV Hypoglycemia 07/27/18 07:00 08/26/18 06:59 Dextrose (Dextrose 50%) 50 ml Q30M PRN IV Hypoglycemia 07/27/18 07:00 08/26/18 06:59 Insulin Aspart (NovoLOG) BEFORE MEALS AND HS SUBQ 07/27/18 06:30 08/26/18 06:29 07/29/18 12:12 Insulin Aspart (NovoLOG) 8 units NOVOTIAC SUBQ 07/29/18 11:50 08/26/18 11:49 07/29/18 12:13 Insulin Detemir (Levemir) 24 units DAILY SUBQ 07/29/18 09:00 08/26/18 08:59 07/29/18 08:18 Pneumococcal Polyvalent Vaccine (Pneumovax) 0.5 ml ONCE ONCE IM 07/27/18 13:45 07/27/18 13:46 UNV Vancomycin HCl (Vanco rx to dose) 1 ea DAILY PRN MISC Per rx protocol 07/28/18 16:30 08/27/18 16:29 Vancomycin HCl 750 mg/Sodium Chloride 275 ml @ 183.333 mls/hr Q24H IVPB 07/29/18 17:00 08/03/18 16:59 Miguel Angel Santiago MD Jul 29, 2018 12:26
--- NOTE | 2018-07-29 13:30 | NUR ---
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 RIGHT LUNG MASS VS: BP 170/74, P 87, T 96.1, RR 20, SpO2 96 IS:NOVOLOG SUBQ LEVEMIR SUBQ ZITHROMAX 250mg INSULIN SUBQ MED/SURG STATUS
[2018-07-29] MEDS: cefTRIAXone 1 GM in D5W 55 ML IVPB SCH (14:59)
--- NOTE | 2018-07-29 15:16 | General Progress Note ---
Assessment/Plan Assessment/Plan Assessment and Recs: #. Right lung mass versus pneumonia. Dense consolidation in the posterior right middle lobe with air bronchograms, with some extension into the adjacent right lower lobe and right upper lobe. Findings most likely represent pneumonia --> imaging has been reviewed and obtain cxr in future to monitor resolution --> no need for biopsy at this exact time, given potential improvement on abx --> again repeat cxr in several days --> pulm and id eval prn --> abx have been started #. Abnormal labs with elevated tumor markers --> can obtain outpatient imaging as needed, though can be done op #. Diabetes out of control. --> per endo insulin and accuchecks #. Hypertension. The timing of this note does not necessarily reflect the time of the patient was seen. Greatly appreciate consultation! Subjective HEENT: Denies: no symptoms, eye pain, blurred vision, tearing, double vision, ear pain, ear discharge, nose pain, nose congestion, throat pain, throat swelling, mouth pain, mouth swelling, other Cardiovascular: Denies: no symptoms, chest pain, edema, irregular heart rate, lightheadedness, palpitations, syncope, other Respiratory: Denies: no symptoms, cough, orthopnea, shortness of breath, SOB with excertion, SOB at rest, sputum, stridor, wheezing, other Gastrointestinal/Abdominal: Denies: no symptoms, abdomen distended, abdominal pain, black stools, tarry stools, blood in stool, constipated, diarrhea, difficulty swallowing, nausea, poor appetite, poor fluid intake, rectal bleeding , vomiting, other Genitourinary: Denies: no symptoms, burning, discharge, frequency, flank pain, hematuria, incontinence, pain, urgency, other Neurologic/Psychiatric: Denies: no symptoms, anxiety, depressed, emotional problems, headache, numbness, paresthesia, pre-existing deficit, seizure, tingling, tremors, weakness, other Endocrine: Denies: no symptoms, excessive sweating, flushing, intolerance to cold, intolerance to heat, increased hunger, increased thirst, increased urine, unexplained weight gain, unexplained weight loss, other Hematologic/Lymphatic: Denies: no symptoms, anemia, easy bleeding, easy bruising, other Allergies: Coded Allergies: No Known Allergies (Unverified , 07/26/18) Subjective 07/28: no new events, has elevated tumor markers, will review further 07/29: labs today have been ordered cbc pending Objective Last 24 Hour Vital Signs Date Time Temp Pulse Resp B/P (MAP) Pulse Ox O2 Delivery O2 Flow Rate FiO2 07/29/18 11:50 97.9 68 18 158/76 (103) 96 07/29/18 08:00 81 108/51 (70) 07/29/18 08:00 96.1 87 20 97/59 (72) 98 07/29/18 04:30 151/84 (106) 07/29/18 04:00 97.4 61 18 170/74 (106) 98 07/29/18 00:00 97.4 74 19 147/74 (98) 98 07/28/18 21:00 Room Air 07/28/18 20:00 97.8 76 18 158/67 (97) 97 07/28/18 16:00 98.5 76 19 162/78 (106) 100 Intake and Output 07/28/18 07/29/18 19:00 07:00 Intake Total 1200 ml Balance 1200 ml Intake Oral 1200 ml # Voids 8 2 # Bowel Movements 1 Height (Feet): 5 Height (Inches): 4.00 Weight (Pounds): 108 Objective PE: Vitals: reviewed General Appearance: NAD HEENT: normocephalic, atraumatic Neck: non-tender, normal alignment Respiratory/Chest: nromal breath sounds bilaterally Cardiovascular/Chest: normal peripheral pulses, normal rate Abdomen: normal bowel sounds, soft, nontender Extremities: normal range of motion Rodrigo Rodríguez MD Jul 29, 2018 15:16
[2018-07-29 15:46] LABS: BASOPHILS % (AUTO) 1.1 % (0.0-2.0); EOSINOPHILS % (AUTO) 0.4 % (0.0-3.0); HEMATOCRIT 33.6 % (37.0-47.0); HEMOGLOBIN 11.9 G/DL (12.0-16.0); LYMPHOCYTES % (AUTO) 44.2 % (20.0-45.0); MEAN CORPUSCULAR VOLUME 85 FL (80-99); MONOCYTES % (AUTO) 14.5 % (1.0-10.0); NEUTROPHILS % (AUTO) 39.8 % (45.0-75.0); PLATELET COUNT 159 K/UL (150-450); RED BLOOD COUNT 3.96 M/UL (4.20-5.40); RED CELL DISTRIBUTION WIDTH 10.7 % (11.6-14.8); WHITE BLOOD COUNT 3.8 K/UL (4.8-10.8)
[2018-07-29] MEDS ORDERED: Vancomycin 750mg/NS 275ml IVPB SCH ×2 (17:00)
--- NOTE | 2018-07-29 19:08 | NUR ---
HAND-OFF: Report given to Jojo.
--- NOTE | 2018-07-29 19:53 | NUR ---
NURSE NOTES: Received patient awake, able to verbalize needs, no complaints of pain at this time, no s/s of acute distress. Daughter and daughter in law at the bedside. IV access asymptomatic, on saline lock. Fall and safety precautions taken. Call light and belongings within reach. Previous high blood sugar noted, will monitor blood sugar closely.
--- NOTE | 2018-07-29 21:27 | General Progress Note ---
Assessment/Plan Problem List: (1) Pneumonia ICD Codes: J18.9 - Pneumonia, unspecified organism SNOMED: 560194453 (2) Abnormal laboratory test result ICD Codes: R89.9 - Unspecified abnormal finding in specimens from other organs , systems and tissues SNOMED: 051589513 Status: progressing Assessment/Plan pna is improving afebrile reviewed chart and labs and meds not hypoxic Subjective ROS Limited/Unobtainable: Yes Allergies: Coded Allergies: No Known Allergies (Unverified , 07/26/18) Objective Last 24 Hour Vital Signs Date Time Temp Pulse Resp B/P (MAP) Pulse Ox O2 Delivery O2 Flow Rate FiO2 07/29/18 20:00 98.4 72 17 123/60 (81) 94 07/29/18 16:00 98.1 69 18 119/67 (84) 94 07/29/18 11:50 97.9 68 18 158/76 (103) 96 07/29/18 08:00 81 108/51 (70) 07/29/18 08:00 96.1 87 20 97/59 (72) 98 07/29/18 04:30 151/84 (106) 07/29/18 04:00 97.4 61 18 170/74 (106) 98 07/29/18 00:00 97.4 74 19 147/74 (98) 98 Intake and Output 07/28/18 07/29/18 19:00 07:00 Intake Total 1200 ml Balance 1200 ml Intake Oral 1200 ml # Voids 8 2 # Bowel Movements 1 Laboratory Tests 07/29/18 15:35: White Blood Count 3.8L, Red Blood Count 3.96L, Hemoglobin 11.9L, Hematocrit 33.6L, Mean Corpuscular Volume 85, Mean Corpuscular Hemoglobin 30.0, Mean Corpuscular Hemoglobin Concent 35.5, Red Cell Distribution Width 10.7L, Platelet Count 159, Mean Platelet Volume 7.6, Neutrophils (%) (Auto) 39.8L, Lymphocytes (%) (Auto) 44.2, Monocytes (%) (Auto) 14.5H, Eosinophils (%) (Auto) 0.4, Basophils (%) (Auto) 1.1 Height (Feet): 5 Height (Inches): 4.00 Weight (Pounds): 108 Cardiovascular: normal rate Respiratory/Chest: lungs clear Abdomen: soft Hadadz,Ali MD Jul 29, 2018 21:27
[2018-07-30] VITALS: BP 114/54
[2018-07-30 04:00] VITALS: BP 136/60
[2018-07-30] MEDS: NovoLOG Insulin Flexpen SUBQ SCH ×3 (06:30→11:30)
--- NOTE | 2018-07-30 07:11 | NUR ---
HAND-OFF: Report given to Alisa Lomeli LVN.
--- NOTE | 2018-07-30 07:30 | NUR ---
NURSE NOTES: patient received A/A/Ox4, ambulatory. no acute distress at this time. Denies of pain/discomfort at this time. Iranian speaking. family at bedside. IV intact and asymptomatic. bed in lowest position and locked. call light within reach. will continue to monitor.
--- NOTE | 2018-07-30 08:02 | General Progress Note ---
Assessment/Plan Problem List: (1) Diabetes mellitus out of control ICD Codes: E11.65 - Type 2 diabetes mellitus with hyperglycemia SNOMED: 93223562, 427856070 (2) Pneumonia ICD Codes: J18.9 - Pneumonia, unspecified organism SNOMED: 601702830 (3) Abnormal laboratory test result ICD Codes: R89.9 - Unspecified abnormal finding in specimens from other organs , systems and tissues SNOMED: 312225008 Assessment/Plan change Levemir to 16 units qhs DC Novolog to 8 units ac tid start Metformin 500 gm tid start Starlix 120 mg ac tid start Januvia 100 mg daily continue NISS ac / hs Subjective Allergies: Coded Allergies: No Known Allergies (Unverified , 07/26/18) All Systems: reviewed and negative except above Subjective events noted feeing better appetite is good fasting glucose improved Item Value Date Time Bedside Blood Glucose 74 mg/dl 07/30/18 0630 Bedside Blood Glucose 299 mg/dl H 07/29/18 2124 Bedside Blood Glucose 401 mg/dl H 07/29/18 1623 Bedside Blood Glucose 245 mg/dl H 07/29/18 1213 Bedside Blood Glucose 318 mg/dl H 07/29/18 0818 Bedside Blood Glucose 255 mg/dl H 07/29/18 0658 Objective Last 24 Hour Vital Signs Date Time Temp Pulse Resp B/P (MAP) Pulse Ox O2 Delivery O2 Flow Rate FiO2 07/30/18 04:00 97.5 61 17 136/60 (85) 97 07/30/18 00:00 98.0 65 17 114/54 (74) 97 07/29/18 20:00 98.4 72 17 123/60 (81) 94 07/29/18 16:00 98.1 69 18 119/67 (84) 94 07/29/18 11:50 97.9 68 18 158/76 (103) 96 Intake and Output 07/29/18 07/30/18 18:59 06:59 Intake Total 360 ml Balance 360 ml Intake Oral 360 ml # Voids 3 # Bowel Movements 1 Laboratory Tests 07/29/18 15:35: White Blood Count 3.8L, Red Blood Count 3.96L, Hemoglobin 11.9L, Hematocrit 33.6L, Mean Corpuscular Volume 85, Mean Corpuscular Hemoglobin 30.0, Mean Corpuscular Hemoglobin Concent 35.5, Red Cell Distribution Width 10.7L, Platelet Count 159, Mean Platelet Volume 7.6, Neutrophils (%) (Auto) 39.8L, Lymphocytes (%) (Auto) 44.2, Monocytes (%) (Auto) 14.5H, Eosinophils (%) (Auto) 0.4, Basophils (%) (Auto) 1.1 Height (Feet): 5 Height (Inches): 4.00 Weight (Pounds): 108 General Appearance: no apparent distress Neck: normal alignment Cardiovascular: normal rate Respiratory/Chest: lungs clear Abdomen: normal bowel sounds Pelvis: normal external exam Edema: no edema noted Arm (L), no edema noted Arm (R), no edema noted Leg (L), no edema noted Leg (R), no edema noted Pedal (L), no edema noted Pedal (R), no edema noted Generalized Objective Current Medications Medications (Trade) Dose Ordered Sig/Aidan Route PRN Reason Start Time Stop Time Status Last Admin Dose Admin Acetaminophen (Tylenol) 500 mg Q4H PRN ORAL Mild Pain/Temp > 100.5 07/27/18 01:00 08/26/18 00:59 07/29/18 21:26 Azithromycin (Zithromax) 250 mg DAILY ORAL 07/28/18 09:00 08/04/18 08:59 07/29/18 08:17 Ceftriaxone Sodium 1 gm/ Dextrose 55 ml @ 110 mls/hr Q24H IVPB 07/27/18 15:00 08/03/18 14:59 07/29/18 14:59 Dextrose (Dextrose 50%) 25 ml Q30M PRN IV Hypoglycemia 07/27/18 07:00 08/26/18 06:59 Dextrose (Dextrose 50%) 50 ml Q30M PRN IV Hypoglycemia 07/27/18 07:00 08/26/18 06:59 Insulin Aspart (NovoLOG) BEFORE MEALS AND HS SUBQ 07/27/18 06:30 08/26/18 06:29 07/29/18 21:24 Insulin Aspart (NovoLOG) 8 units NOVOTIAC SUBQ 07/29/18 11:50 08/26/18 11:49 07/29/18 16:23 Insulin Detemir (Levemir) 10 units BEDTIME SUBQ 07/29/18 21:00 08/28/18 20:59 07/29/18 21:12 Insulin Detemir (Levemir) 24 units DAILY SUBQ 07/29/18 09:00 08/26/18 08:59 07/29/18 08:18 Pneumococcal Polyvalent Vaccine (Pneumovax) 0.5 ml ONCE ONCE IM 07/27/18 13:45 07/27/18 13:46 Jim Florez MD Jul 30, 2018 08:02
[2018-07-30 08:04] VITALS: BP 122/50
[2018-07-30] MEDS: Azithromycin 250mg tab ORAL SCH (08:29)
--- NOTE | 2018-07-30 09:00 | Diagnostic Imaging Report ---
EXAM: XR Chest, 1 View CLINICAL HISTORY: INFECT TECHNIQUE: Frontal view of the chest. COMPARISON: Chest x-ray dated 07/26/18 FINDINGS: Lungs: Interval improvement of the right lower lobe opacity. Mild residual increased interstitial markings in the right lower lung. Pleural space: Unremarkable. The costophrenic angles are sharp. No visible pneumothorax. Heart: Unremarkable. No cardiomegaly. Mediastinum: Unremarkable. Bones/joints: Unremarkable. Vasculature: Atherosclerotic calcifications are noted within the aortic arch. IMPRESSION: Interval improvement of the right lower lobe opacity. Mild residual increased interstitial markings in the right lower lung.
[2018-07-30] MEDS ORDERED: LEVAQUIN750 MG ORAL ×2 (10:26→10:27)
--- NOTE | 2018-07-30 11:15 | NUR ---
NURSE NOTES: verified home address. removed IV heplock. d/c home instructions given and explained. spoke with [employer] and will call patient pharm. In stable condition. no acute resp distress noted. BrotherDawna will provide transportation. personal belongings reviewed and noted. skin is intact. will cont to monitor.
--- NOTE | 2018-07-30 11:20 | NUR ---
NURSE NOTES: d/c home with aDwna, brother today. No acute resp distress noted. In stable condition.
[2018-07-30] MEDS ORDERED: metFORMIN 500mg tab ORAL SCH (11:30)
[2018-07-30] MEDS ORDERED: Levemir Flexpen SUBQ SCH (21:00)
--- NOTE | 2018-08-02 08:04 | Discharge Summary ---
Discharge Summary Discharge Summary _ DATE OF ADMISSION: 07/26/2018 DATE OF DISCHARGE: 07/30/2018 DISCHARGED BY: Dr Neff REASON FOR ADMISSION: 63 years old female with past medical history of diabetes mellitus, hypertension , presented with complaints of elevated glucose levels. Patient also reported cough and congestion along with subjective fever. She denied chest pain , but reported some shortness of breath with exertion. She denied vomiting, nausea, diarrhea, no abdominal pain. Upon evaluation patient had low-grade fever, tachycardia, blood pressure was slightly elevated. No leukocytosis, stable hemoglobin and hematocrit. Neutrophils 79%. Stable electrolytes and renal parameters. Lactic acid 1.3. Stable LFT. Troponin negative. Pro BNP 375. EKG revealed normal sinus rhythm, no acute ischemic changes. Urinalysis revealed +4 protein, +4 glucose. Blood glucose 380. No laboratory evidence of DKA. Chest x-ray revealed right basilar opacity 3.5 x 4 cm, possibly reflecting mass or patchy infiltrate. Subsequently CT of the head was done which revealed dense consolidation in the posterior right middle lobe with air bronchograms, with some extension into the adjacent right lower lobe and right upper lobe. Findings most likely represented pneumonia. Patient started on the IV hydration., empiric antibiotic , and was admitted for further management. CONSULTANTS: infectious disease Dr. Garrett collision mechanic/oncologist Dr. Rodríguez station installer Dr. Zelaya [facility] COURSE: Patient admitted to medical surgical floor. Patient started on empiric antibiotic for pneumonia, likely community-acquired pneumonia as per ID specialist recommendation Blood culture revealed 1 out of 4 staphylococci coagulase-negative, likely contaminant as per ID specialist. Patient was on IV antibiotics while in the hospital. Fevers resolved, no leukocytosis. With morning Upon discharge antibiotic changed to oral to complete the course. Supplemental oxygen provided as needed to keep pulse oximetry above 92%. Pulmonary toilet provided as needed. Follow-up chest x-ray demonstrated interval improvement of the right lower lobe opacity. Strip Machine Tender followed for hyperglycemia. Hemoglobin A1c 11.8, clearly not at goal. Blood sugar was managed with long-acting insulin along with Metformin , Starlix and Januvia. Sliding scale of insulin provided as needed. Diabetic education provided. Patient need close follow-up with a primary care provider as outpatient to improve blood sugar control Blood pressure was closely monitored and remained stable with the current regimen. Research Worker Encyclopedia /oncologist seen and evaluated patient initially for possible mass. Tumor markers were ordered and noted elevated tumor markers CEA 4.8, CA 125 38.7. Patient will need outpatient imaging and further workup for elevated tumor markers. Supportive care provided. Patient clinically stabilized and was ready for discharge home. FINAL DIAGNOSES: Diabetes mellitus out of control Pneumonia, likely community-acquired pneumonia Possible right lung mass Abnormal laboratory test results/elevated tumor markers Hypertension DISCHARGE MEDICATIONS: See Medication Reconciliation list. DISCHARGE INSTRUCTIONS: Patient was discharged home. Follow-up with a primary care provider in 1 week. Patient will need outpatient imaging and further workup for elevated tumor markers. I have been assigned to dictate discharge summary for this account. I was not involved in the patient's management. Angely Casillas NP Aug 02, 2018 08:04
== END 2018-07-30 11:40 | disposition home or self-care (01) | DRG 139 ==
LOC: EDBD 15:56 → EMR 17:15 → 4E 20:32 → EDBEDREQ 20:59
DX: J18.9 Pneumonia, unspecified organism (principal); E11.65 Type 2 diabetes mellitus with hyperglycemia; R91.8 Other nonspecific abnormal finding of lung field; I10 Essential (primary) hypertension; H54.61 Unqualified visual loss, right eye, normal vision left eye
CPT/HCPCS: 36415; 71045; 71250; 80053; 81003; 82378; 82550; 82553; 82962; 83036; 83605; 83690; 83880; 84484; 85025; 86304; 87040; 87181; 93005; 96361; 96365; 96375; 99285; J1815; J2405; S5561

== ENCOUNTER 2019-01-27 18:08 | Emergency (ER) | payer MEDICAID ==
[~2019-01-27] VITALS: Ht 147.3 cm; Wt 68.0 kg
[~2019-01-27 18:08] MED LIST: ATORVASTATIN CA40 MG ORAL; ENALAPRIL MALEA20 MG ORAL; JENTADUETO 2.51 EAC2 PO; LANSOPRAZOLE30 M2 PO; LEVAQUIN750 MG ORAL; LUMIFY2.5 ML OP; LYRICA75 M1 ORAL; MULTI VITAMIN1 EACH ORAL; OMEPRAZOLE10 M1 ORAL; TERBINAFINE HC250 MG PO; ZOFRAN4 M3 ORAL
--- NOTE | 2019-01-27 18:08 | NUR ---
ED Nurse Note: patient brought in by ambulance from home with her daughter c/o abdominal pain and vomiting for 3 days. patient is alert awake x4 ambulatory breathing unlabored and even, speaking in full sentences. daughter at bedside.
[2019-01-27 19:00] LABS: BASOPHILS % (AUTO) 1.6 % (0.0-2.0); EOSINOPHILS % (AUTO) 0.7 % (0.0-3.0); HEMATOCRIT 38.7 % (37.0-47.0); HEMOGLOBIN 13.8 G/DL (12.0-16.0); LYMPHOCYTES % (AUTO) 42.4 % (20.0-45.0); MEAN CORPUSCULAR VOLUME 87 FL (80-99); MONOCYTES % (AUTO) 8.6 % (1.0-10.0); NEUTROPHILS % (AUTO) 46.6 % (45.0-75.0); PLATELET COUNT 190 K/UL (150-450); RED BLOOD COUNT 4.42 M/UL (4.20-5.40); RED CELL DISTRIBUTION WIDTH 9.9 % (11.6-14.8); WHITE BLOOD COUNT 4.4 K/UL (4.8-10.8)
--- NOTE | 2019-01-27 19:06 | Emergency Room Report ---
History of Present Illness General Chief Complaint: Abdominal Pain Source: Patient Present Illness HPI Disclaimer: Please note that this report is being documented using DRAGON technology. This can lead to erroneous entry secondary to incorrect interpretation by the dictating instrument. HPI: 64-year-old female with history of hypertension and diabetes presents for evaluation of abdominal pain and vomiting. Symptoms have been present 3 to 4 days. She notes upper abdominal cramping that is persistent and postprandial emesis. She is able to drink and hold down liquids but not able to hold down any solid food. Denies diarrhea, coffee-ground emesis, hematemesis. Denies chest pain or shortness of breath or cough. Denies fevers or chills. PMH: Hypertension, diabetes PSH: None Allergies: None reported Social Hx: None reported Allergies: Coded Allergies: No Known Allergies (Unverified , 07/26/18) Nursing Documentation-PMH Past Medical History: No History, Except For Hx Hypertension: Yes Hx Diabetes: Yes Hx Gastrointestinal Problems: Yes - gastritis Review of Systems All Other Systems: negative except mentioned in HPI Physical Exam Vital Signs Date Time Temp Pulse Resp B/P (MAP) Pulse Ox O2 Delivery O2 Flow Rate FiO2 01/27/19 17:53 98.6 80 16 157/77 (103) 98 Room Air General: Awake and alert, no acute distress HEENT: NC/AT. EOMI. dry mucous membranes Neck: Supple, trachea midline Chest Wall: No tenderness, no deformity Cardiovascular: RRR. S1 and S2 normal. No murmur appreciated Resp: Normal work of breathing. No cough, wheezing or crackles appreciated Abdomen: Abdomen is soft, nondistended. Diffuse tenderness palpation worse in the left upper quadrant in the epigastrium. No rebound, no masses. Skin: Intact. No abrasions, laceration or rash over the exposed skin MSK: Normal tone and bulk. Moving all extremities. No obvious deformity. Neuro: Awake and alert. Mentating appropriately. Medical Decision Making Diagnostic Impression: Primary Impression: Nausea and vomiting ER Course 64-year-old female history diabetes presents for evaluation of vomiting of 4 days. Otherwise well-appearing with stable vital signs and does not appear infectious. She denies fever or diarrhea. We will start IV fluids, blood work and treat with antiemetics, GI cocktail and famotidine. Laboratory Tests Test 01/27/19 18:39 01/27/19 22:25 White Blood Count 4.4 K/UL (4.8-10.8) L Red Blood Count 4.42 M/UL (4.20-5.40) Hemoglobin 13.8 G/DL (12.0-16.0) Hematocrit 38.7 % (37.0-47.0) Mean Corpuscular Volume 87 FL (80-99) Mean Corpuscular Hemoglobin 31.3 PG (27.0-31.0) H Mean Corpuscular Hemoglobin Concent 35.7 G/DL (32.0-36.0) Red Cell Distribution Width 9.9 % (11.6-14.8) L Platelet Count 190 K/UL (150-450) Mean Platelet Volume 7.9 FL (6.5-10.1) Neutrophils (%) (Auto) 46.6 % (45.0-75.0) Lymphocytes (%) (Auto) 42.4 % (20.0-45.0) Monocytes (%) (Auto) 8.6 % (1.0-10.0) Eosinophils (%) (Auto) 0.7 % (0.0-3.0) Basophils (%) (Auto) 1.6 % (0.0-2.0) Sodium Level 139 MMOL/L (136-145) Potassium Level 3.9 MMOL/L (3.5-5.1) Chloride Level 103 MMOL/L (98-107) Carbon Dioxide Level 30 MMOL/L (21-32) Anion Gap 6 mmol/L (5-15) Blood Urea Nitrogen 13 mg/dL (7-18) Creatinine 0.8 MG/DL (0.55-1.30) Estimate Glomerular Filtration Rate > 60 mL/min (>60) Glucose Level 266 MG/DL (74-106) H Calcium Level 9.2 MG/DL (8.5-10.1) Total Bilirubin 0.3 MG/DL (0.2-1.0) Aspartate Amino Transferase (AST) 12 U/L (15-37) L Alanine Aminotransferase (ALT) 20 U/L (12-78) Alkaline Phosphatase 132 U/L (46-116) H Troponin I 0.000 ng/mL (0.000-0.056) Total Protein 6.3 G/DL (6.4-8.2) L Albumin 2.7 G/DL (3.4-5.0) L Globulin 3.6 g/dL Albumin/Globulin Ratio 0.8 (1.0-2.7) L Lipase 75 U/L (73-393) Urine Color Pale yellow Urine Appearance Clear Urine pH 7 (4.5-8.0) Urine Specific [place] 1.005 (1.005-1.035) Urine Protein 3+ (NEGATIVE) H Urine Glucose (UA) 3+ (NEGATIVE) H Urine Ketones Negative (NEGATIVE) Urine Blood 1+ (NEGATIVE) H Urine Nitrite Negative (NEGATIVE) Urine Bilirubin Negative (NEGATIVE) Urine Urobilinogen Normal MG/DL (0.0-1.0) Urine Leukocyte Esterase Negative (NEGATIVE) Urine RBC 2-4 /HPF (0 - 2) H Urine WBC 0-2 /HPF (0 - 2) Urine Squamous Epithelial Cells Few /LPF (NONE/OCC) Urine Bacteria Few /HPF (NONE) Reevaluation Time: 23:00 Last Vital Signs Date Time Temp Pulse Resp B/P (MAP) Pulse Ox O2 Delivery O2 Flow Rate FiO2 01/27/19 17:53 98.6 80 16 157/77 (103) 98 Room Air Status: improved Reevaluation Impression Labs have returned within normal limits. No evidence of urinary tract infection. Patient received IV fluids, GI cocktail and famotidine after which she notes significant improvement. She will be discharged home with Zofran for symptom medic control of what is likely a viral illness. Discussed need to follow-up with PMD, continue drinking IV fluids to avoid dehydration and reasons to return to the emergency department. She understands and agrees with this treatment plan and will be discharged home. Family updated at bedside. Disposition: HOME, SELF-CARE Condition: Improved Scripts Ondansetron Odt* (ZOFRAN ODT*) 4 Mg Tab.rapdis 4 MG BC EVERY 6 HOURS PRN for Nausea & Vomiting, #20 TAB 0 Refills Prov: Ronald Lara MD 01/27/19 Ronald Lara MD Jan 27, 2019 19:06
--- NOTE | 2019-01-27 19:10 | NUR ---
ED Nurse Note: Patient resting comfortably with no s/s of acute distress. Daughter at bedside.
[2019-01-27 19:15] LABS: ANION GAP 6 mmol/L (5-15); BLOOD UREA NITROGEN 13 mg/dL (7-18); CALCIUM 9.2 MG/DL (8.5-10.1); CARBON DIOXIDE 30 MMOL/L (21-32); CHLORIDE 103 MMOL/L (98-107); CREATININE 0.8 MG/DL (0.55-1.30); POTASSIUM 3.9 MMOL/L (3.5-5.1); SODIUM 139 MMOL/L (136-145)
[2019-01-27] MEDS ORDERED: Mylanta II UD 30ml ORAL ONE (19:15)
[2019-01-27] MEDS ORDERED: Lidocaine 2% Visc 15ml soln ORAL ONE (19:15)
[2019-01-27] MEDS ORDERED: Dicyclomine HCl 10mg/5ml oral soln ORAL ONE (19:15)
[2019-01-27 19:16] LABS: ALANINE AMINOTRANSFERASE 20 U/L (12-78); ALBUMIN 2.7 G/DL (3.4-5.0); ALBUMIN/GLOBULIN RATIO 0.8 (1.0-2.7); ALKALINE PHOSPHATASE 132 U/L (46-116); ASPARTATE AMINO TRANSFERASE 12 U/L (15-37); BILIRUBIN,TOTAL 0.3 MG/DL (0.2-1.0)
--- NOTE | 2019-01-27 19:50 | NUR ---
HAND-OFF: Report given to Radha MORELOS. patient resting comfortably in bed
[2019-01-27 19:56] VITALS: BP 192/81
[2019-01-27 20:30] VITALS: BP 173/86
--- NOTE | 2019-01-27 20:30 | NUR ---
ED Nurse Note: Patient able to ambulate to restroom with assistance.
--- NOTE | 2019-01-27 21:30 | NUR ---
ED Nurse Note: Patient has no complaints at this time. Awaiting another void for urine collection.
[2019-01-27] MEDS ORDERED: ONDANSETRON ODT4 MG BC (21:54)
--- NOTE | 2019-01-27 22:25 | NUR ---
ED Nurse Note: PAtient able to provide urine sample, sent to lab.
[2019-01-27 22:45] LABS: APPEARANCE,URINE CLEAR; BILIRUBIN, URINE NEGATIVE (NEGATIVE); COLOR,URINE PALE YELLOW; GLUCOSE, URINE (UA) 3+ (NEGATIVE); KETONES,URINE NEGATIVE (NEGATIVE); LEUKOCYTE ESTERASE ,URINE NEGATIVE (NEGATIVE); NITRITE,URINE NEGATIVE (NEGATIVE); PH,URINE 7 (4.5-8.0); PROTEIN,URINE 3+ (NEGATIVE); UROBILINOGEN,URINE NORMAL MG/DL (0.0-1.0)
[2019-01-27 23:00] VITALS: BP 173/86
--- NOTE | 2019-01-27 23:00 | NUR ---
ED Nurse Note: Patient cleared for discharge with no s.s of acute distress. Patient verbalized understanding of discharge instructions, ID band removed, IV removed. Patient departed with all belongings accompanied by her daughter to wait for her son for pick to home.
== END 2019-01-27 23:00 | disposition home or self-care (01) ==
LOC: EDBD 18:08 → EMR 21:45
DX: R11.2 Nausea with vomiting, unspecified (principal); E11.9 Type 2 diabetes mellitus without complications; I10 Essential (primary) hypertension
CPT/HCPCS: 36415; 80053; 81003; 82962; 83690; 84484; 85025; 96361; 96374; 96375; J2405; S0028; Z7502; 99284; J7030